=== PATIENT | male | born 1975 | race African-American/Black ===

== ENCOUNTER 2021-01-27 05:55 | Inpatient (IN) ==
[2021-01-24 12:34] LABS: Basophils # 0.1 10*3/uL (0.0-0.2); Basophils % 0.6 % (0.0-0.8); Eosinophils # 0.1 10*3/uL (0.0-0.87); Eosinophils % 0.9 % (0.00-10.9); Hematocrit 39.8 VOL% (42.0-52.0); Hemoglobin 13.6 GM/DL (14.0-18.0); Immature Granulocytes % 1.1 %; Immature Granulocytes Absolute 0.13 #; Lymphocytes # 2.8 10*3/uL (1.4-4.0); Lymphocytes % 23.6 % (21.2-54.2); Mean Corpuscular HGB Conc 34.2 GM/DL (32-36); Mean Corpuscular Volume 90.5 FL (87-102); Mean Platelet Volume 12.1 FL (9.6-12.0); Monocytes % 5.2 % (1.7-12.7); Neutrophils % 68.6 % (38.7-73.9); Platelet Count 158 T/CUMM (130-400); Red Cell Distribution Width 12.2 % (9.3-17.3)
[2021-01-24 12:44] LABS: Calcium 9.3 MG/DL (8.5-10.1); Osmolality,Calculated 275.4 MOS/KG (273-304); Potassium 4.5 MMOL/L (3.5-5.1)
[2021-01-27] MEDS ORDERED: LIDOCAINE 2% 5 ML VIAL ONE (06:12)
[2021-01-27] MEDS ORDERED: MIDAZOLAM 2 MG/2 ML VIAL ONE (06:12)
[2021-01-27] MEDS ORDERED: ONDANSETRON 4 MG/2 ML VIAL ONE (06:12)
[2021-01-27] MEDS ORDERED: propofoL 200 MG/20 ML VIAL IV ONE (06:12)
[2021-01-27] MEDS ORDERED: ROCURONIUM 50 MG/5 ML VIAL IV ONE ×2 (06:12→08:59)
[2021-01-27] MEDS ORDERED: SUCCINYLCHOLINE 200 MG/10 ML VIAL ONE (06:12)
[2021-01-27] MEDS ORDERED: fentaNYL 100 MCG/2 ML VIAL ONE ×2 (06:12→07:37)
[2021-01-27] MEDS ORDERED: GLYCOPYRROLATE 0.4 MG/2 ML VIAL ONE ×2 (06:12→09:05)
[2021-01-27] MEDS ORDERED: DEXAMETHASONE 4 MG/1 ML VIAL ONE (06:12)
[2021-01-27] MEDS ORDERED: FAMOTIDINE 20 MG TABLET PO ONE (06:21)
[2021-01-27] MEDS ORDERED: LACTATED RINGERS 1,000 ML IV SCH (06:30)
[2021-01-27] MEDS ORDERED: TISSUE ADHESIVE 1 EACH APPLICATOR TOP ONE (06:44)
[2021-01-27] MEDS ORDERED: ACETAMINOPHEN INJ 1,000 MG/100 ML VIAL IV ONE (06:59)
[2021-01-27] MEDS ORDERED: KETOROLAC 30 MG/1 ML VIAL ONE (07:00)
[2021-01-27] MEDS ORDERED: HYDROmorphone 2 MG/1 ML VIAL ONE (08:43)
[2021-01-27] MEDS ORDERED: SEVOFLURANE 1 UNIT/15 MINUTE INH ONE (08:59)
[2021-01-27] MEDS ORDERED: NEOSTIGMINE 10 MG/10 ML VIAL ONE (09:05)
[2021-01-27] MEDS ORDERED: ACETAMINOPHEN 325 MG TABLET PO PRN (09:29)
[2021-01-27] MEDS ORDERED: MEPERIDINE 25 MG/1 ML VIAL IV PRN (10:06)
[2021-01-27] MEDS: LACTATED RINGERS 1,000 ML IV SCH (10:22)
[2021-01-27] MEDS ORDERED: DEXTROSE 50% 25 GM/50 ML VIAL IV PRN (11:18)
[2021-01-27] MEDS ORDERED: GLUCAGON 1 MG VIAL IM PRN (11:18)
[2021-01-27] MEDS: PIPERACILLIN/TAZOBACTAM 3,375 MG in SODIUM CHLORIDE 0.9% 100 ML IV SCH ×2 (11:50→16:37)
[2021-01-27] MEDS: HYDROmorphone 2 MG/1 ML VIAL IV PRN ×2 (11:51→18:20)
[2021-01-27] MEDS: INSULIN LISPRO 100 UNIT/ML SUBCUT SCH ×2 (12:20→16:40)
[2021-01-28] MEDS: DOCUSATE SODIUM 100 MG CAPSULE PO SCH ×3 (01:34→21:55)
[2021-01-28] MEDS: INSULIN LISPRO 100 UNIT/ML SUBCUT SCH ×5 (01:34→21:55)
[2021-01-28] MEDS: PIPERACILLIN/TAZOBACTAM 3,375 MG in SODIUM CHLORIDE 0.9% 100 ML IV SCH ×3 (01:55→17:01)
[2021-01-28] MEDS: HYDROmorphone 2 MG/1 ML VIAL IV PRN ×4 (03:49→22:50)
[2021-01-28 05:17] LABS: Basophils % 0.3 % (0.0-0.8); Eosinophils % 0.3 % (0.00-10.9); Hematocrit 36.2 VOL% (42.0-52.0); Hemoglobin 12.3 GM/DL (14.0-18.0); Immature Granulocytes % 0.8 %; Immature Granulocytes Absolute 0.09 #; Lymphocytes # 1.4 10*3/uL (1.4-4.0); Mean Corpuscular Volume 88.5 FL (87-102); Mean Platelet Volume 11.8 FL (9.6-12.0); Monocytes % 6.5 % (1.7-12.7); Neutrophils % 80.1 % (38.7-73.9); Platelet Count 141 T/CUMM (130-400); Red Blood Count 4.09 MC/CUMM (3.8-5.5); White Blood Count 11.7 T/CUMM (4-12)
[2021-01-28 05:41] LABS: Albumin 3.1 G/DL (3.4-5.0); Bilirubin,Total 0.8 MG/DL (0.20-1.00); Calcium 8.4 MG/DL (8.5-10.1); Osmolality,Calculated 274.1 MOS/KG (273-304); Total Protein 6.5 G/DL (6.4-8.2)
[2021-01-28] MEDS: LACTATED RINGERS 1,000 ML IV SCH ×4 (06:13→22:55)
[2021-01-28] MEDS: PANTOPRAZOLE 40 MG TABLET PO SCH (09:06)
[2021-01-28] MEDS: ENOXAPARIN 40 MG/0.4 ML SYRINGE SUBCUT SCH (09:07)
[2021-01-28] MEDS: ONDANSETRON 4 MG/2 ML VIAL IV PRN (22:53)
[2021-01-29] MEDS: PIPERACILLIN/TAZOBACTAM 3,375 MG in SODIUM CHLORIDE 0.9% 100 ML IV SCH ×3 (02:32→16:59)
[2021-01-29] MEDS: HYDROmorphone 2 MG/1 ML VIAL IV PRN ×4 (04:06→23:30)
[2021-01-29] MEDS: DOCUSATE SODIUM 100 MG CAPSULE PO SCH ×2 (08:34→20:16)
[2021-01-29] MEDS: PANTOPRAZOLE 40 MG TABLET PO SCH (08:34)
[2021-01-29] MEDS: ENOXAPARIN 40 MG/0.4 ML SYRINGE SUBCUT SCH (08:36)
[2021-01-29] MEDS: INSULIN LISPRO 100 UNIT/ML SUBCUT SCH ×4 (08:37→21:41)
[2021-01-29] MEDS: ONDANSETRON 4 MG/2 ML VIAL IV PRN (14:17)
[2021-01-29] MEDS: LACTATED RINGERS 1,000 ML IV SCH (15:14)
[2021-01-30] MEDS: PIPERACILLIN/TAZOBACTAM 3,375 MG in SODIUM CHLORIDE 0.9% 100 ML IV SCH ×2 (02:15→11:24)
[2021-01-30 08:21] LABS: Basophils % 0.2 % (0.0-0.8); Eosinophils # 0.1 10*3/uL (0.0-0.87); Eosinophils % 0.6 % (0.00-10.9); Hematocrit 35.5 VOL% (42.0-52.0); Hemoglobin 12.1 GM/DL (14.0-18.0); Immature Granulocytes % 0.4 %; Immature Granulocytes Absolute 0.04 #; Lymphocytes # 1.6 10*3/uL (1.4-4.0); Lymphocytes % 17.6 % (21.2-54.2); Mean Corpuscular HGB Conc 34.1 GM/DL (32-36); Mean Corpuscular Volume 87.9 FL (87-102); Mean Platelet Volume 11.2 FL (9.6-12.0); Monocytes % 7.6 % (1.7-12.7); Neutrophils % 73.6 % (38.7-73.9); Platelet Count 147 T/CUMM (130-400); Red Blood Count 4.04 MC/CUMM (3.8-5.5); Red Cell Distribution Width 12.1 % (9.3-17.3)
[2021-01-30 08:43] LABS: Albumin 3.3 G/DL (3.4-5.0); Bilirubin,Total 1.1 MG/DL (0.20-1.00); Osmolality,Calculated 276.7 MOS/KG (273-304); Potassium 3.7 MMOL/L (3.5-5.1); Total Protein 7.2 G/DL (6.4-8.2)
[2021-01-30] MEDS: HYDROmorphone 2 MG/1 ML VIAL IV PRN (08:59)
[2021-01-30] MEDS: DOCUSATE SODIUM 100 MG CAPSULE PO SCH (08:59)
[2021-01-30] MEDS: ENOXAPARIN 40 MG/0.4 ML SYRINGE SUBCUT SCH (08:59)
[2021-01-30] MEDS: PANTOPRAZOLE 40 MG TABLET PO SCH (08:59)
[2021-01-30] MEDS: INSULIN LISPRO 100 UNIT/ML SUBCUT SCH ×2 (09:00→11:16)
[2021-01-30] MEDS: LACTATED RINGERS 1,000 ML IV SCH (09:00)
[2021-01-30 11:50] VITALS: BP 158/94
[2021-01-30] MEDS ORDERED: METOCLOPRAMIDE 10 MG TABLET PO SCH (13:00)
[2021-01-31] MEDS ORDERED: GLIMEPIRIDE 2 MG TABLET PO SCH (09:00)
[2021-01-31] MEDS ORDERED: lisinopriL 10 MG TABLET PO SCH (09:00)
[2021-01-31] MEDS ORDERED: hydroCHLOROthiazide 12.5 MG CAPSULE PO SCH (09:00)
== END 2021-01-30 15:28 | disposition home or self-care (01) | DRG 414 ==
LOC: N.OR 05:55 → N.SDSINP 06:00 → N.3E 10:48
PROVIDERS: ADMIT Student in an Organized Health Care Education/Training Program; ATTEND Student in an Organized Health Care Education/Training Program
PROC: LAPCHOL (2021-01-27 07:08)

== ENCOUNTER 2021-07-29 20:44 | Inpatient (IN) ==
[2021-07-29] MEDS ORDERED: SODIUM CHLORIDE 0.9% 1,000 ML IV STA (21:38)
[2021-07-29] MEDS ORDERED: ONDANSETRON 4 MG/2 ML VIAL IV STA (21:38)
[2021-07-29] MEDS ORDERED: HYDROmorphone 1 MG/1 ML SYRINGE IV STA (21:38)
[2021-07-29 22:30] LABS: Basophils % 0.1 % (0.0-0.8); Eosinophils % 0.3 % (0.00-10.9); Hematocrit 45.3 VOL% (42.0-52.0); Hemoglobin 15.7 GM/DL (14.0-18.0); Immature Granulocytes % 0.3 %; Immature Granulocytes Absolute 0.05 #; Lymphocytes # 2.3 10*3/uL (1.4-4.0); Lymphocytes % 16.2 % (21.2-54.2); Mean Corpuscular HGB Conc 34.7 GM/DL (32-36); Mean Platelet Volume 11.4 FL (9.6-12.0); Monocytes # 1.2 10*3/uL (0.11-0.8); Monocytes % 8.6 % (1.7-12.7); Neutrophils % 74.5 % (38.7-73.9); Platelet Count 215 T/CUMM (130-400); Red Blood Count 5.27 MC/CUMM (3.8-5.5); Red Cell Distribution Width 12.8 % (9.3-17.3); White Blood Count 14.4 T/CUMM (4-12)
[2021-07-29 22:52] LABS: Albumin 4.6 G/DL (3.4-5.0); Bilirubin,Total 0.8 MG/DL (0.20-1.00); Calcium 9.7 MG/DL (8.5-10.1); Osmolality,Calculated 290.1 MOS/KG (273-304); Total Protein 8.5 G/DL (6.4-8.2)
[2021-07-29 23:41] LABS: Granular Casts,Urine 4 /LPF (0-1); Hyaline Casts,Urine 18 /LPF (0-3); Mucus,Urine Occasional /LPF (Occasional); RBC,Urine 2 /HPF (0-4); Squamous Epithelial Cell,Urine Occasional /HPF (0-10)
[2021-07-29 23:46] LABS: Glucose,Urine (UA) Negative (Negative); Ketones,Urine Negative (Negative); Nitrite,Urine Negative (Negative); Protein,Urine Negative (Negative); Urine Appearance Clear (Clear); Urine Color Yellow (Yellow); Urine Specific Gravity 1.025 (1.001-1.035)
[2021-07-29 23:47] LABS: Bilirubin,Urine Negative (Negative); Blood, Urine Trace mg/dL (Negative); Urine Urobilinogen 0.2 eU/dL (<2.0)
[2021-07-29] MEDS ORDERED: diphenhydrAMINE CAP 25 MG CAPSULE PO PRN (23:58)
[2021-07-29] MEDS ORDERED: ACETAMINOPHEN 325 MG TABLET PO PRN (23:58)
[2021-07-29] MEDS ORDERED: NICOTINE 21 MG/24 HR PATCH TRANSDERM PRN (23:58)
[2021-07-29] MEDS ORDERED: GLUCAGON 1 MG VIAL IM PRN (23:58)
[2021-07-29] MEDS ORDERED: BISACODYL 5 MG TABLET PO PRN (23:58)
[2021-07-29] MEDS ORDERED: guaiFENesin/DM ER 600-30 MG TABLET PO PRN (23:58)
[2021-07-29] MEDS ORDERED: ONDANSETRON 4 MG/2 ML VIAL IV PRN (23:58)
[2021-07-29] MEDS ORDERED: ZALEPLON 5 MG CAPSULE PO PRN (23:58)
[2021-07-29] MEDS ORDERED: DEXTROSE 10% 250 ML BAG IV PRN (23:58)
[2021-07-29] MEDS ORDERED: hydrALAZINE 20 MG/1 ML VIAL IV PRN (23:58)
[2021-07-30] MEDS ORDERED: HEPARIN 5,000 UNIT/1 ML VIAL ONE (00:09)
[2021-07-30] MEDS ORDERED: GLUCAGON 1 MG VIAL IM PRN (01:14)
[2021-07-30] MEDS ORDERED: DEXTROSE 50% 25 GM/50 ML VIAL IV PRN (01:14)
[2021-07-30 01:29] LABS: Basophils % 0.1 % (0.0-0.8); Eosinophils % 0.3 % (0.00-10.9); Hematocrit 46.2 VOL% (42.0-52.0); Hemoglobin 15.8 GM/DL (14.0-18.0); Immature Granulocytes % 0.3 %; Immature Granulocytes Absolute 0.05 #; Lymphocytes # 3.1 10*3/uL (1.4-4.0); Lymphocytes % 20.9 % (21.2-54.2); Mean Corpuscular HGB Conc 34.2 GM/DL (32-36); Mean Corpuscular Volume 87.5 FL (87-102); Mean Platelet Volume 11.1 FL (9.6-12.0); Monocytes # 1.2 10*3/uL (0.11-0.8); Monocytes % 8.4 % (1.7-12.7); Platelet Count 219 T/CUMM (130-400); Red Blood Count 5.28 MC/CUMM (3.8-5.5); Red Cell Distribution Width 12.8 % (9.3-17.3); White Blood Count 14.9 T/CUMM (4-12)
[2021-07-30 01:51] LABS: Calcium 9.7 MG/DL (8.5-10.1); Osmolality,Calculated 287.1 MOS/KG (273-304); Potassium 4.1 MMOL/L (3.5-5.1)
[2021-07-30 01:53] LABS: Barbiturates Screen,Urine Negative (Negative); Benzodiazepines Screen,Urine Negative (Negative); Cannabinoid Screen,Urine Positive (Negative); Opiate Screen,Urine Negative (Negative); Phencyclidine Screen,Urine Negative (Negative)
[2021-07-30] MEDS: cefTRIAXone 1,000 MG in SODIUM CHLORIDE 0.9% 100 ML IV SCH (02:57)
[2021-07-30] MEDS: SODIUM CHLORIDE 0.9% 1,000 ML IV SCH ×3 (02:58→18:36)
[2021-07-30] MEDS: metroNIDAZOLE INJ 500 MG/100 ML PREMIX IV SCH ×3 (03:36→18:33)
[2021-07-30] MEDS: MORPHINE 2 MG/1 ML SYRINGE IV PRN ×2 (05:37→19:56)
[2021-07-30] MEDS: INSULIN LISPRO 100 UNIT/ML SUBCUT SCH ×3 (07:15→18:38)
[2021-07-30] MEDS: HEPARIN 5,000 UNIT/1 ML VIAL SUBCUT SCH ×2 (10:30→22:19)
[2021-07-30] MEDS: PANTOPRAZOLE 40 MG TABLET PO SCH (10:30)
[2021-07-30] MEDS: CHOLESTYRAMINE 4 GM PACK PO SCH (22:19)
[2021-07-31] MEDS: SODIUM CHLORIDE 0.9% 1,000 ML IV SCH ×5 (00:13→21:40)
[2021-07-31] MEDS: INSULIN LISPRO 100 UNIT/ML SUBCUT SCH ×4 (00:40→17:23)
[2021-07-31] MEDS: cefTRIAXone 1,000 MG in SODIUM CHLORIDE 0.9% 100 ML IV SCH (02:16)
[2021-07-31] MEDS: metroNIDAZOLE INJ 500 MG/100 ML PREMIX IV SCH ×3 (03:55→18:05)
[2021-07-31 05:13] LABS: Basophils # 0.1 10*3/uL (0.0-0.2); Basophils % 0.6 % (0.0-0.8); Eosinophils # 0.1 10*3/uL (0.0-0.87); Eosinophils % 1.1 % (0.00-10.9); Hematocrit 37.5 VOL% (42.0-52.0); Immature Granulocytes % 0.3 %; Immature Granulocytes Absolute 0.03 #; Lymphocytes # 2.6 10*3/uL (1.4-4.0); Lymphocytes % 28.3 % (21.2-54.2); Mean Corpuscular HGB Conc 34.1 GM/DL (32-36); Mean Corpuscular Volume 87.8 FL (87-102); Mean Platelet Volume 11.5 FL (9.6-12.0); Monocytes # 0.6 10*3/uL (0.11-0.8); Neutrophils % 62.7 % (38.7-73.9); Red Blood Count 4.27 MC/CUMM (3.8-5.5); Red Cell Distribution Width 12.5 % (9.3-17.3)
[2021-07-31 05:17] LABS: Hemoglobin 12.8 GM/DL (14.0-18.0); Platelet Count 152 T/CUMM (130-400)
[2021-07-31 05:24] LABS: Calcium 8.2 MG/DL (8.5-10.1); Osmolality,Calculated 279.7 MOS/KG (273-304); Potassium 3.7 MMOL/L (3.5-5.1)
[2021-07-31] MEDS: MORPHINE 2 MG/1 ML SYRINGE IV PRN (08:18)
[2021-07-31] MEDS: HEPARIN 5,000 UNIT/1 ML VIAL SUBCUT SCH ×2 (08:20→21:42)
[2021-07-31] MEDS: PANTOPRAZOLE 40 MG TABLET PO SCH (08:20)
[2021-07-31] MEDS: CHOLESTYRAMINE 4 GM PACK PO SCH ×2 (10:37→21:42)
[2021-07-31] MEDS ORDERED: METOCLOPRAMIDE 10 MG/2 ML VIAL IV PRN (11:18)
[2021-08-01] MEDS: INSULIN LISPRO 100 UNIT/ML SUBCUT SCH ×2 (00:46→10:19)
[2021-08-01] MEDS: cefTRIAXone 1,000 MG in SODIUM CHLORIDE 0.9% 100 ML IV SCH (01:43)
[2021-08-01] MEDS: metroNIDAZOLE INJ 500 MG/100 ML PREMIX IV SCH ×2 (02:59→10:25)
[2021-08-01] MEDS: SODIUM CHLORIDE 0.9% 1,000 ML IV SCH ×2 (07:36→10:25)
[2021-08-01] MEDS: CHOLESTYRAMINE 4 GM PACK PO SCH (10:18)
[2021-08-01] MEDS: HEPARIN 5,000 UNIT/1 ML VIAL SUBCUT SCH (10:19)
[2021-08-01] MEDS: PANTOPRAZOLE 40 MG TABLET PO SCH (10:19)
[2021-08-01 11:42] VITALS: BP 138/87
== END 2021-08-01 12:30 | disposition home or self-care (01) | DRG 392 ==
LOC: N.ED 20:44 → SUATTDRO 23:58 → N.EDINP 23:58 → N.TELEN 07-30 00:58
PROVIDERS: ADMIT Internal Medicine; ATTEND Emergency Medicine